=== PATIENT | male | born 1955 | race Caucasian/White ===

== ENCOUNTER 2020-11-08 05:33 | Outpatient (CLI) | payer MEDICARE, OTHER ==
[~2020-11-08] VITALS: Ht 193 cm; Wt 103.2 kg
[2020-11-08] MEDS ORDERED: METF-399 PO (11:18)
[2020-11-08] MEDS ORDERED: OLME-9 PO (11:18)
[2020-11-08] MEDS ORDERED: GLIP10TA13 PO (11:18)
[2020-11-08] MEDS ORDERED: MULT-1056 PO (11:18)
[2020-11-08] MEDS ORDERED: EZET1TAB69 PO (11:18)
[2020-11-08] MEDS ORDERED: DAPA10TA PO (11:18)
== END 2020-11-08 11:23 | disposition home or self-care (01) ==
LOC: PREOP 05:33
PROVIDERS: ATTEND Surgery
DX: Z01.818 Encounter for other preprocedural examination (principal)

== ENCOUNTER 2020-11-10 06:15 | Day surgery (SDC) | payer OTHER ==
[2020-11-10] VITALS (11 sets, daily range): BP systolic 109–142; BP diastolic 78–94
[~2020-11-10] VITALS: Ht 193 cm; Wt 103.2 kg
[~2020-11-10 06:15] MED LIST: DAPA10TA PO; EZET-59 PO; GLIP10TA13 PO; METF-399 PO; MULT-1056 PO; OLME-9 PO
[2020-11-10] MEDS ORDERED: LACTATED RINGERS 1,000 ML IV PRN (06:45)
[2020-11-10] MEDS ORDERED: ceFAZolin INJECTION 1,000 MG in WATER (STERILE) FOR INJECTION 10 ML IV ONE (06:45)
--- NOTE | 2020-11-10 08:02 | Progress Note-Pre Operative ---
Pre-Operative Progress Note H&P Reviewed The H&P was reviewed, patient examined and no changes noted. Date Seen by Provider: November 10, 2020 Time Seen by Provider: 08:02 Date H&P Reviewed: November 10, 2020 Time H&P Reviewed: 08:02 Pre-Operative Diagnosis: melanoma scalp BRANDON JANE DO November 10, 2020 08:02
--- NOTE | 2020-11-10 08:46 | Diagnostic Imaging Report ---
INDICATION: Melanoma on the scalp. 1.0 mCi of filtered sulfur colloid was injected in 4 separate aliquots surrounding the melanoma excision site. Imaging over the head and neck was performed. 2 separate guillermina sites were marked on the patient's skin. IMPRESSION: Melanoma lymphoscintigraphy with identification of sentinel nodes, as described. Dictated by: Dictated on workstation # [id number]
[2020-11-10] MEDS ORDERED: ceFAZolin INJECTION 1,000 MG ONE (10:16)
[2020-11-10] MEDS ORDERED: WATER (STERILE) FOR INJECTION 10 ML ONE (10:16)
[2020-11-10] MEDS ORDERED: LIDOCAINE/EPI 1%-1:200,000 (XYLOCAINE) 10 ML VIAL ONE (11:00)
[2020-11-10] MEDS ORDERED: fentaNYL INJ 100 MCG/2 ML AMP ONE (11:46)
[2020-11-10] MEDS ORDERED: MIDAZOLAM 2 MG/2 ML (VERSED) VIAL ONE (11:47)
[2020-11-10] MEDS ORDERED: METHYLENE BLUE 0.5% (PROVAYBLUE) 50 mg/10 ml vial IV ONE (11:49)
[2020-11-10] MEDS ORDERED: BACITRACIN OINTMENT 28 GM TUBE ONE (12:34)
[2020-11-10] MEDS ORDERED: proPOfol 200 MG/20 ML (DIPRIVAN) VIAL IV ONE (12:48)
[2020-11-10] MEDS ORDERED: LIDOCAINE PF 0.5% 50 ML (XYLOCAINE) VIAL ONE (12:48)
[2020-11-10] MEDS ORDERED: ONDANSETRON 4 MG/2 ML (SDV) Z0FRAN ONE (12:48)
[2020-11-10] MEDS ORDERED: SEVOFLURANE (ULTANE) 15 ML INHAL SOLN ONE (12:48)
--- NOTE | 2020-11-10 13:10 | Anesthesia-General Post-Op ---
General Patient Condition Mental Status/LOC: Same as Preop Cardiovascular: Satisfactory Nausea/Vomiting: Absent Respiratory: Satisfactory Pain: Controlled Complications: Absent Post Op Complications Complications None Follow Up Care/Instructions Patient Instructions None needed. Anesthesia/Patient Condition Patient Condition Patient is doing well, no complaints, stable vital signs, no apparent adverse anesthesia problems. No complications reported per nursing. LARISSA WILLIAM CRNA November 10, 2020 13:10
[2020-11-10] MEDS ORDERED: morphine INJ 10 MG/ML 1ML (SYR OR VIAL) IVP ONE (13:15)
[2020-11-10] MEDS ORDERED: ONDANSETRON 4 MG/2 ML (SDV) Z0FRAN IVP PRN (13:15)
--- NOTE | 2020-11-10 13:45 | Discharge Inst-Simple/Standard ---
Discharge Inst-Standard Patient Instructions/Follow Up Plan of Care/Instructions/FU: 12-14 days Isaias Activity as Tolerated: No Discharge Diet: Regular Diet Other Inst to Patient Follow up Appt: Make appointment for 12-14 days Isaias (suture removal) Instructions: No lifting greater than 10 pounds. No strenuous activity. May shower in 24 hours, no tub bath or soaking. Use incentive spirometer at home as directed. No Smoking Skin/Wound Care: Keep areas clean and dry. Symptoms to Report: Appetite Changes, Extremity Discoloration, Numbness/Tingling, Swelling Increased, Bleeding Excessive, Eyesight Changes, Pain Increased, Urine Color Change, Constipation(Persistent), Fever over 101 degree F, Pain/Pressure in chest, Urinating Difficulty, Cough Up/Vomit Blood, Heart Beat Irreg/Pounding, Pain/Pressure in jaw, Vaginal Bleeding Increase, Cramps in feet or legs, Lightheadedness, Pain/Pressure in shoulder, Diarrhea(Persistent), Memory Changes Suddenly, Questions/Concerns, Weight gain consecutive days, Dizziness/Fainting, Nausea/Vomiting, Shortness of Breath, Weight gain over 2 pounds If questions or concerns contact your physician Or seek help at emergency department. BRANDON JANE DO November 10, 2020 13:45
[2020-11-10] MEDS ORDERED: HYDROcodone/APAP 5 MG/325 MG (LORTAB) TAB PO ONE (14:00)
--- NOTE | 2020-11-10 15:57 | OPERATIVE REPORT ---
DATE OF SERVICE: 11/10/2020 PREOPERATIVE DIAGNOSIS: Melanoma of scalp. POSTOPERATIVE DIAGNOSIS: Melanoma of scalp. PROCEDURE: Reexcision of scalp melanoma and sentinel node biopsy, excision of scalp, 3 cm x 7 cm. ANESTHESIA: General. ESTIMATED BLOOD LOSS: Minimal. COMPLICATIONS: None. INDICATIONS: The patient is a 65-year-old male, who was found to have a melanoma on the scalp. The patient needing reexcision and sentinel node biopsy. He understands risks and benefits of procedure and wished to proceed with procedure. Consent was signed in the chart. DESCRIPTION OF PROCEDURE: The patient was taken to the operating suite. The patient was intubated and prepped and draped methylene blue was injected around the melanoma site and massaged. Lymphoscintigraphy was utilized to help with sentinel node location. Probe was then used to find the sentinel node, which was posterior auricular. Local anesthetic was infiltrated. A 15 blade scalpel was used to make a small skin incision. Cautery was used to dissect down to the subcutaneous tissues and a purple node was identified, dissected around and removed. Count was 1911. The wound was then irrigated and skin was then closed with 3-0 Prolene. The reexcision of the melanoma was then performed. Local anesthetic was infiltrated and a 15 blade scalpel was used to make an incision 3 x 7 cm around the previous excision. The skin and subcutaneous tissue was removed. Hemostasis was achieved. Specimen was labeled long suture lateral, short anterior. Scope was then closed using 3-0 Prolene. The area was washed and dried, sterile bandage was applied. The patient tolerated procedure well without any complications. He was taken to recovery room in stable condition. 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
== END 2020-11-10 14:50 ==
LOC: CARD 06:15
PROVIDERS: ATTEND Surgery
DX: C43.4 Malignant melanoma of scalp and neck (principal); I10 Essential (primary) hypertension; E11.9 Type 2 diabetes mellitus without complications; Z79.84 Long term (current) use of oral hypoglycemic drugs; Z79.899 Other long term (current) drug therapy
CPT/HCPCS: 11626; 38505; 78195; 87081; A9541